=== PATIENT | female | born 1995 | race Two or more races ===

== ENCOUNTER 2024-09-01 12:25 | Emergency (ER) | payer OTHER ==
[~2024-09-01] VITALS: Ht 157.5 cm; Wt 53.5 kg
[2024-09-01 16:15] LABS: HEMOGLOBIN 11.7 g/dL (12.0-15.00); MEAN CELL VOLUME 86.2 fL (80.00-100.00); MEAN CORPUSCULAR HEMOGLOBIN 28.9 pg (27.00-32.0); MEAN CORPUSCULAR HGB CONC 33.6 g/dl (32.0-36.0); PLATELET COUNT 231 K/uL (150-450); RED BLOOD COUNT 4.06 M/uL (4.00-6.00); RED CELL DISTRIBUTION WIDTH 14.1 % (11.5-14.5)
[2024-09-01 17:11] LABS: CALCIUM 8.2 mg/dL (8.5-10.1); CREATININE SERUM 0.53 mg/dL (0.55-1.02); GFR 137.36; POTASSIUM 3.69 mEq/L (3.5-5.1)
[2024-09-01 17:28] LABS: PH,URINE 6.5 (5.0-8.0); URINE APPEARANCE Clear; URINE BILIRRUBIN Negative (NEGATIVE); URINE BLOOD Negative; URINE COLOR Yellow; URINE GLUCOSE Negative (NEGATIVE); URINE KETONE 15 (NEGATIVE); URINE LEUKOCYTE Negative; URINE NITRATE Negative; URINE PROTEIN Negative (NEGATIVE); URINE UROBILINOGEN 0.2 E.U./dl
[2024-09-01 17:29] LABS: URINE BACTERIA 391.5 uL (0.0-1933); URINE EPITHELIAL CELLS 10.7 uL (0.0-38.8); URINE WBC 5.3 uL (0.0-23.2)
[2024-09-01 17:33] LABS: URINE RBC 0.8 uL (0.0-20.8)
== END 2024-09-01 17:54 | disposition home or self-care (01) ==
LOC: ER 12:27
PROVIDERS: General Practice
DX: O99.891 Other specified diseases and conditions complicating pregnancy (principal); Z3A.19 19 weeks gestation of pregnancy; R10.2 Pelvic and perineal pain

== ENCOUNTER 2024-10-22 21:12 | Inpatient (IN) | payer OTHER ==
[~2024-10-22] VITALS: Ht 157.5 cm; Wt 54.9 kg
[2024-10-22 20:57] VITALS: BP 109/68
[2024-10-22 21:09] VITALS: BP 109/68
[2024-10-22] MEDS ORDERED: ONDANSETRON HCL 2 MG/ML VIAL ONE (21:18)
[2024-10-22] MEDS ORDERED: FOLIC ACID0.8 M1 PO (21:25)
[2024-10-22] MEDS ORDERED: PRENATA CHEWAB1 EACH PO (21:25)
[2024-10-22] MEDS ORDERED: DEXTROSE 5%-LACTATED RINGERS 1,000 ML IV SCH (21:45)
[2024-10-22] MEDS ORDERED: ONDANSETRON HCL 2 MG/ML VIAL IV SCH (21:45)
[2024-10-22 21:47] LABS: HEMATOCRIT 33.4 % (36.0-45.00); HEMOGLOBIN 11.4 g/dL (12.0-15.00); MEAN CELL VOLUME 85.5 fL (80.00-100.00); MEAN CORPUSCULAR HEMOGLOBIN 29.1 pg (27.00-32.0); PLATELET COUNT 164 K/uL (150-450); RED BLOOD COUNT 3.91 M/uL (4.00-6.00); RED CELL DISTRIBUTION WIDTH 13.1 % (11.5-14.5); URINE APPEARANCE Clear; URINE BILIRRUBIN Negative (NEGATIVE); URINE BLOOD Negative; URINE COLOR Yellow; URINE EPITHELIAL CELLS 58.7 uL (0.0-38.8); URINE GLUCOSE Negative (NEGATIVE); URINE LEUKOCYTE Trace; URINE NITRATE Negative; URINE PROTEIN 30 (NEGATIVE); URINE RBC 3.9 uL (0.0-20.8); URINE UROBILINOGEN 0.2 E.U./dl; URINE WBC 33.5 uL (0.0-23.2)
[2024-10-22 21:56] LABS: URINE CAST 0.58 uL (0.0-1.40); URINE KETONE >=160 (NEGATIVE)
[2024-10-22 22:10] LABS: BILIRUBIN TOTAL 0.42 mg/dL (0.3-1.2); CALCIUM 8.2 mg/dL (8.5-10.1); CREATININE SERUM 0.52 mg/dL (0.55-1.02); GFR 140.41; GLOBULINA 2.9 G/DL (2.4-3.5); POTASSIUM 3.06 mEq/L (3.5-5.1); TOTAL PROTEIN 5.9 gm/dL (6.4-8.2)
[2024-10-22 23:20] VITALS: BP 97/57; O2SAT 100
[2024-10-23 03:20] VITALS: BP 94/60; O2SAT 98
[2024-10-23 06:04] VITALS: BP 86/44; O2SAT 100
[2024-10-23 10:51] VITALS: BP 84/57
[2024-10-23 15:16] VITALS: BP 92/51
[2024-10-23] MEDS ORDERED: POTASSIUM CHLORIDE/D5-0.45NACL 1,000 ML IV ONE (18:00)
[2024-10-23 20:57] VITALS: BP 97/61
[2024-10-23 23:27] VITALS: BP 88/56
[2024-10-24 04:00] VITALS: BP 85/53
[2024-10-24 06:07] VITALS: BP 87/52; O2SAT 99
[2024-10-24 11:18] VITALS: BP 91/61
== END 2024-10-24 12:52 | disposition home or self-care (01) | DRG 833 ==
LOC: LDR 21:12
PROVIDERS: ADMIT Obstetrics & Gynecology Maternal & Fetal Medicine; ATTEND Obstetrics & Gynecology Maternal & Fetal Medicine
PROC: 4A1HXCZ Monitoring of Products of Conception, Cardiac Rate, External Approach (ICD-10-PCS; principal; 2024-10-22)
DX: O21.0 Mild hyperemesis gravidarum (principal); Z3A.26 26 weeks gestation of pregnancy

== ENCOUNTER 2025-01-23 11:26 | Outpatient (CLI) | payer OTHER ==
[~2025-01-23 11:26] MED LIST: FOLIC ACID0.8 M1 PO; PRENATA CHEWAB1 EACH PO
== END 2025-01-23 12:11 | disposition home or self-care (01) ==
LOC: NST 11:26
PROVIDERS: ATTEND Obstetrics & Gynecology
DX: Z34.83 Encounter for supervision of other normal pregnancy, third trimester (principal)

== ENCOUNTER 2025-01-23 13:08 | Inpatient (IN) | payer OTHER ==
[~2025-01-23] VITALS: Ht 157.5 cm; Wt 62.6 kg
[2025-01-24 07:43] VITALS: BP 118/86
[2025-01-24] MEDS ORDERED: AMPICILLIN SODIUM 2,000 MG VIAL IV ONE (09:00)
[2025-01-24] MEDS ORDERED: OXYTOCIN 500 ML IV SCH (09:00)
[2025-01-24] MEDS ORDERED: RINGERS SOLUTION,LACTATED 1,000 ML IV SCH ×2 (09:00→16:15)
[2025-01-24] MEDS ORDERED: MORPHINE SULFATE 4 MG/ML CARTRIDGE IV PRN ×2 (09:30→16:15)
[2025-01-24 09:54] LABS: HEMOGLOBIN 11.3 g/dL (12.0-15.00); MEAN CELL VOLUME 85.4 fL (80.00-100.00); MEAN CORPUSCULAR HEMOGLOBIN 28.4 pg (27.00-32.0); MEAN CORPUSCULAR HGB CONC 33.2 g/dl (32.0-36.0); PLATELET COUNT 154 K/uL (150-450); RED BLOOD COUNT 3.99 M/uL (4.00-6.00); RED CELL DISTRIBUTION WIDTH 15.1 % (11.5-14.5)
[2025-01-24 10:01] LABS: INR < 0.93
[2025-01-24 10:13] VITALS: BP 114/78
[2025-01-24 10:15] LABS: ALBUMIN 2.8 gm/dL (3.4-5.0); BILIRUBIN TOTAL 0.18 mg/dL (0.3-1.2); CALCIUM 8.8 mg/dL (8.5-10.1); CREATININE SERUM 0.51 mg/dL (0.55-1.02); GFR 142.57; POTASSIUM 4.06 mEq/L (3.5-5.1); TOTAL PROTEIN 5.8 gm/dL (6.4-8.2)
[2025-01-24] MEDS ORDERED: AMPICILLIN SODIUM 1,000 MG VIAL IV SCH (13:00)
[2025-01-24 15:17] VITALS: BP 132/76
[2025-01-24] MEDS ORDERED: OXYTOCIN 1,000 ML IV ONE (16:15)
[2025-01-24] MEDS ORDERED: GABAPENTIN 300 MG CAPSULE PO SCH (17:00)
[2025-01-24] MEDS ORDERED: SIMETHICONE 125 MG CAPSULE PO SCH (17:00)
[2025-01-24] MEDS ORDERED: ACETAMINOPHEN 500 MG GEL..CAP PO SCH (18:00)
[2025-01-24] MEDS ORDERED: ONDANSETRON HCL 2 MG/ML VIAL IV SCH (18:00)
[2025-01-24] MEDS ORDERED: KETOROLAC TROMETHAMINE 30 MG VIAL IV SCH (18:00)
[2025-01-24] MEDS ORDERED: OXYTOCIN 10 UNITS/ML VIAL IV ONE (18:30)
[2025-01-24] MEDS ORDERED: ERYTHROMYCIN BASE OPHT 1GM EACH TUBE OP ONE (18:30)
[2025-01-24] MEDS ORDERED: MORPHINE SULFATE 4 MG/ML VIAL IV ONE ×2 (18:55→19:25)
[2025-01-24 21:54] VITALS: BP 129/80
[2025-01-25] VITALS: BP 108/67
[2025-01-25] MEDS ORDERED: OxyCODONE HCL 5 MG TABLET (ROXICODONE) PO PRN (08:00)
[2025-01-25] MEDS ORDERED: KETOROLAC TROMETHAMINE 10 MG TABLET PO SCH (08:00)
[2025-01-25] MEDS ORDERED: DOCUSATE SODIUM 100MG CAP PO SCH (09:00)
[2025-01-25 10:04] LABS: HEMATOCRIT 27.1 % (36.0-45.00); MEAN CELL VOLUME 86.2 fL (80.00-100.00); MEAN CORPUSCULAR HGB CONC 32.8 g/dl (32.0-36.0); RED BLOOD COUNT 3.14 M/uL (4.00-6.00); RED CELL DISTRIBUTION WIDTH 15.1 % (11.5-14.5)
[2025-01-25 10:13] LABS: HEMOGLOBIN 8.9 g/dL (12.0-15.00); MEAN CORPUSCULAR HEMOGLOBIN 28.3 pg (27.00-32.0); PLATELET COUNT 120 K/uL (150-450)
[2025-01-25 17:03] VITALS: BP 104/63
[2025-01-26 00:18] VITALS: BP 107/68
[2025-01-26 07:55] VITALS: BP 112/72
[2025-01-26 14:21] VITALS: BP 118/76
[2025-01-26 20:00] VITALS: BP 136/86
[2025-01-27 00:19] VITALS: BP 123/75
[2025-01-27 08:58] VITALS: BP 130/75
[2025-01-27] MEDS ORDERED: IRON FUM,PS/FOLIC/BCOMP,C NO.9 1 CAP CAPSULE PO SCH (09:00)
== END 2025-01-27 13:40 | disposition home or self-care (01) | DRG 788 ==
LOC: LDR 13:08 → OB/GYN 01-24 08:22
PROVIDERS: Obstetrics & Gynecology; ADMIT Obstetrics & Gynecology; ATTEND Obstetrics & Gynecology
PROC: 4A1HXCZ Monitoring of Products of Conception, Cardiac Rate, External Approach (ICD-10-PCS; 2025-01-24)
PROC: 10D00Z1 Extraction of Products of Conception, Low, Open Approach (ICD-10-PCS; principal; 2025-01-24 18:00)
DX: O62.1 Secondary uterine inertia (principal); Z3A.40 40 weeks gestation of pregnancy; Z37.0 Single live birth